=== PATIENT | male | born 1975 | race Caucasian/White ===

== ENCOUNTER 2019-05-08 04:14 | Emergency (ER) | payer OTHER ==
--- NOTE | 2019-05-08 04:34 | ERPHSYRPT ---
- History of Present Illness Time Seen by Provider: 05/08/19 04:33 Historian: patient Exam Limitations: no limitations Physician History: 43 years old male with history of coronary artery disease status post CABG present in the ER with intermittent substernal mild to moderate dull aching pain with some chest tightness lasting for a few minutes without any significant aggravating or relieving factors. Denies any radiation. Denies any palpitations or shortness of breath. Patient reports having history of just in the past but not this frequently. Denies any recent fever chills or cough. Timing/Duration: yesterday Activities at Onset: rest Quality: aching, dullness, tightness Location: substernal Chest Pain Radiation: no radiation Severity of Pain-Max: moderate Severity of Pain-Current: moderate Modifying Factors: Improves With: nothing Associated Symptoms: denies symptoms Nitro Today/Relief: no nitro taken today Aspirin Treatment Today: no aspirin today Allergies/Adverse Reactions: No Known Drug Allergies Allergy (Unverified 05/08/19 04:34) Home Medications: Aspirin 81 mg PO DAILY 05/08/19 [History] Atorvastatin Calcium 80 mg PO HS 05/08/19 [History] - Review of Systems Constitutional: No Symptoms Eyes: No Symptoms Ears, Nose, & Throat: No Symptoms Respiratory: No Symptoms Cardiac: Chest Pain Abdominal/Gastrointestinal: No Symptoms Musculoskeletal: No Symptoms Skin: No Symptoms Neurological: No Symptoms Psychological: No Symptoms Endocrine: No Symptoms Hematologic/Lymphatic: No Symptoms Immunological/Allergic: No Symptoms - Nursing Vital Signs Nursing Vital Signs: Initial Vital Signs Temperature 99.2 F 05/08/19 04:18 Pulse Rate 86 05/08/19 04:18 Respiratory Rate 20 05/08/19 04:18 Blood Pressure 144/95 05/08/19 04:18 O2 Sat by Pulse Oximetry 97 05/08/19 04:18 Pain Scale Pain Intensity 0 - Physical Exam General Appearance: no apparent distress Eye Exam: eyes nml inspection Ears, Nose, Throat Exam: normal ENT inspection, pharynx normal Neck Exam: normal inspection, non-tender, supple, full range of motion Respiratory Exam: normal breath sounds, lungs clear, No chest tenderness Cardiovascular Exam: regular rate/rhythm, normal heart sounds Gastrointestinal/Abdomen Exam: soft, normal bowel sounds, No tenderness Back Exam: normal inspection, normal range of motion Extremity Exam: normal inspection, normal range of motion Neurologic Exam: alert, oriented x 3, cooperative SpO2 Interpretation: normal O2 Delivery: Room Air - Course Nursing assessment & vital signs reviewed: Yes EKG Interpreted by Me: RATE (91), Sinus Rhythm (non specific T wave changes), NORMAL AXIS, NORMAL QRS Ordered Tests: Medication Summary Discontinued Medications Generic Name Dose Route Start Last Admin Trade Name Shanq PRN Reason Stop Dose Admin Aspirin 324 mg 05/08/19 04:35 05/08/19 04:39 Baby Aspirin 81 Mg Chew PO 05/08/19 04:36 324 mg STAT ONE Administration Nitroglycerin Confirm 05/08/19 04:42 Nitro-Bid 2% Ud Packets Administered 05/08/19 04:43 Dose 1 gm .ROUTE .STK-MED ONE Nitroglycerin 1 gm 05/08/19 04:43 05/08/19 04:46 Nitro-Bid 2% Ud Packets TOP 05/08/19 04:44 1 gm STAT ONE Administration Lab/Rad Data: Laboratory Result Diagrams 05/08/19 04:42 05/08/19 04:43 Laboratory Results 05/08/19 05/08/19 05/08/19 Range/Units 04:43 04:43 04:42 WBC (4.0-10.5) K/mm3 RBC (4.1-5.6) M/mm3 Hgb (12.5-18.0) gm/dl Hct (42-50) % MCV (78-100) fl MCH (26-32) pg MCHC (32-36) g/dl RDW (11.5-14.0) % Plt Count (150-450) K/mm3 MPV (6-9.5) fl Gran % (36.0-66.0) % Eos # (Auto) (0-0.5) Absolute Lymphs (auto) (1.0-4.6) Absolute Monos (auto) (0.0-1.3) Lymphocytes % (24.0-44.0) % Monocytes % (0.0-12.0) % Eosinophils % (0.00-5.0) % Basophils % (0.0-0.4) % Absolute Granulocytes (1.4-6.9) Basophils # (0-0.4) Sodium Direct 140 (138-146) mmol/L Potassium 3.3 L (3.5-4.9) mmol/L Chloride 101 (98-109) mmol/L Carbon Dioxide 24 (24-29) mmol/L Venous BUN 9 (8-26) mg/dL Creatinine 1.0 (0.6-1.3) mg/dL Glucose 190 H (70-105) mg/dL Ionized Calcium 1.20 (1.12-1.32) mmol/L Troponin I < 0.012 (0.000-0.034) ng/mL NT-Pro-B Natriuret Pep 54.6 (0-450) pg/mL 05/08/19 Range/Units 04:42 WBC 7.5 (4.0-10.5) K/mm3 RBC 4.79 (4.1-5.6) M/mm3 Hgb 15.6 (12.5-18.0) gm/dl Hct 45.1 (42-50) % MCV 94.2 (78-100) fl MCH 32.6 H (26-32) pg MCHC 34.6 (32-36) g/dl RDW 13.1 (11.5-14.0) % Plt Count 229 (150-450) K/mm3 MPV 9.3 (6-9.5) fl Gran % 64.8 (36.0-66.0) % Eos # (Auto) 0.25 (0-0.5) Absolute Lymphs (auto) 1.70 (1.0-4.6) Absolute Monos (auto) 0.66 (0.0-1.3) Lymphocytes % 22.7 L (24.0-44.0) % Monocytes % 8.8 (0.0-12.0) % Eosinophils % 3.3 (0.00-5.0) % Basophils % 0.4 (0.0-0.4) % Absolute Granulocytes 4.86 (1.4-6.9) Basophils # 0.03 (0-0.4) Sodium Direct (138-146) mmol/L Potassium (3.5-4.9) mmol/L Chloride (98-109) mmol/L Carbon Dioxide (24-29) mmol/L Venous BUN (8-26) mg/dL Creatinine (0.6-1.3) mg/dL Glucose (70-105) mg/dL Ionized Calcium (1.12-1.32) mmol/L Troponin I (0.000-0.034) ng/mL NT-Pro-B Natriuret Pep (0-450) pg/mL - Progress Progress: improved, re-examined Air Movement: good Progress Note: 42 years old is evaluated for substernal chest pain intermittently since evening. He is given aspirin and nitro paste on reevaluation the pain is almost completely improved. EKG showed normal sinus rhythm with no acute ST elevations. Initial troponins are negative. Chest x-ray negative for any acute findings. Grossly unremarkable workup otherwise. With his history and symptoms improvement with nitroglycerin this seems to be cardiac origin, he is recommended to observation with further cardiac workup but patient does not want to stay in the hospital at all. He is offered to have second troponin but he does not want to stay unit ER for second troponin. Discussed with patient in detail about consequences of leaving without full workup including but not limited to full blown myocardial infarction and but he still wants to leave. He signed AMA papers. Patient is not confuse her altered at all. Patient says that if his initial workup is negative he does not need to stay in the hospital at all as he would do good. He says that "I want to take my chance ". 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 Take your medications as recommended. Return to ER for just been/ palpitations or shortness of breath.
[2019-05-08] MEDS ORDERED: BABY ASPIRIN 81 MG CHEW PO ONE (04:35)
[2019-05-08] MEDS ORDERED: NITRO-BID 2% UD PACKETS ONE (04:42)
[2019-05-08] MEDS ORDERED: NITRO-BID 2% UD PACKETS TOP ONE (04:43)
[2019-05-08 04:45] LABS: Absolute Neutrophil Ct (ANC) 4.86 (1.4-6.9); BASOPHIL % 0.4 % (0.0-0.4); Basophil (Absolute #) 0.03 (0-0.4); Eosinophil % 3.3 % (0.00-5.0); Eosinophil (Absolute #) 0.25 (0-0.5); Hematocrit 45.1 % (42-50); Hemoglobin 15.6 gm/dl (12.5-18.0); Lymphocytes % 22.7 % (24.0-44.0); Mean Cell Volume 94.2 fl (78-100); Mean Corpuscular Hemoglobin 32.6 pg (26-32); Mean Corpuscular Hgb Concent. 34.6 g/dl (32-36); Mean Platelet Volume 9.3 fl (6-9.5); Monocyte (Absolute #) 0.66 (0.0-1.3); Monocytes % 8.8 % (0.0-12.0); Neutrophil % 64.8 % (36.0-66.0); Platelet Count 229 K/mm3 (150-450); Red Blood Count 4.79 M/mm3 (4.1-5.6); Red Cell Distribution Width 13.1 % (11.5-14.0); White Blood Count 7.5 K/mm3 (4.0-10.5)
[2019-05-08 07:04] VITALS: BP 135/86; PULSE 81; O2SAT 98
--- NOTE | 2019-05-08 08:58 | XRAY ---
Indication: Chest pain. Comparison: September 07, 2018. PA/lateral chest again demonstrates left mid to lower lung fibrosis/scarring with minimal pleural thickening. Remaining lungs are clear. Heart is not enlarged again with CABG surgery. Bony thorax intact. Impression: Stable nonacute chest with chronic features.
== END 2019-05-08 06:52 | disposition left against medical advice (07) ==
LOC: ED 04:14
DX: R07.89 Other chest pain (principal); I25.10 Atherosclerotic heart disease of native coronary artery without angina pectoris; Z95.1 Presence of aortocoronary bypass graft
CPT/HCPCS: 36000; 36415; 71046; 80047; 83880; 84484; 85025; 93005; 93041; 94760; 99284; A9270-GY